=== PATIENT | female | born 1995 | race Caucasian/White ===

== ENCOUNTER 2025-06-09 07:37 | Inpatient (IN) ==
[2025-06-09] MEDS ORDERED: OXYTOCIN 30 UNITS/NSS 30 UNITS/500 ML BAG IV PRN (07:45)
[2025-06-09] MEDS ORDERED: LIDOCAINE 1% LOCAL 20 ML VIAL INFIL PRN (07:45)
--- NOTE | 2025-06-09 08:05 | History & Physical Report ---
Date of Service June 09, 2025 Assessment & Plan (1) Encounter for induction of labor: (2) Post-dates : Plan: 30 y/o at 40w 1d here for IOL. pitocin ordered epidural when desired AROM when indicated IV fluids continuous FHT - category I tracing anticipate . Admission and Anticipated Discharge Date Admission Date: June 09, 2025 History of Present Illness Chief Complaint: induction of labor Primary Care Provider: NO PCP Sanjuanita Hutchison is a 30 y/o at 40w 1d with PASTORA 06/08/25 as determined by ultrasound who presents this morning for induction of labor. uncomplicated. External FHT and external uterine monitors used; Category I tracing; moeerate FHT variability. Had regular appointments with OB. Initial OB Labs Blood Type & RH O positive Antibody Screen negative HCT/HGB 36.5/12.9 Platelets 213 Hep C IgG 13yrs+ Old non reactive Pap Test WNL Chlamydia negative Gonorrhea negative Rubella Immune RPR non reactive Urine Culture/Screen 10,000-50,000 mixed gram + lynne HBsAg non reactive HIV non reactive MCV 87.1 Ultrasound ROS: Denies fever, chills, sweats Denies SOB, dysnpea, chest pain, palpitation, chest pressure Denies breast pain Denies dysuria Denies headache or changes in vision. Allergies Allergy/AdvReac Type Severity Reaction Status Date / Time No Known Allergies Allergy Verified 06/08/25 09:07 Home Medications Medication Instructions Recorded Confirmed Type pediatric multivitamin no.76 1 mg PO DAILY 05/04/25 06/09/25 History [Tish Complete] breast pump #1 ea 05/18/25 06/08/25 Rx Patient History Medical History Varicella vaccination Surgical History S/P appendectomy Family History (Updated 05/04/25 @ 09:13 by Gill Bautista) Grandfather (Maternal) Skin cancer Denies family history of Ovarian cancer Breast cancer Colorectal cancer Social History (Updated 05/04/25 @ 08:52 by Gill Bautista) Smoking Status: Never smoker Do You Dip or Chew Tobacco: No; Hx Alcohol Use: No Hx Substance Use: No Preferred Language: Romansh Communication Ability: Effective Research [employer] Supervisor Required: No Beliefs That Will Affect Care: None marital status: Single marital status details: fob Suhail Srivastava(28) Current Living Situation: Family Current Living Situation Comment: luisa, grandmother, 3 siblings current occupational status: employed current occupation: Skills Other Information That Helps Us Care for You: Yes Feels Safe at Home: Yes Safety Concerns: Feels Safe At This Time Review of Systems as above Physical Exam Physical Exam: General: Alert, oriented. No acute distress. Cardiac: NRRR, no murmurs/rubs/gallops Respiratory: CTA BL, no increased work of breathing; symmetrical rise and fall of chest, no respiratory distress. Abdomen: soft, gravid, normal to inspection. Lower Extremities: No lower extremity edema or swelling. No deep calf pain. Bhavesh's negative bilaterally Results & Data Vital Signs (Past 12 Hours) Vital Signs Pulse BP 06/09/25 07:58 72 134/66 Supervising Physician Co-Signing Physician Notes Resident Physician Supervision Note: I interviewed and examined the patient. Discussed with Dr. Parr and agree with findings and plan as documented in the note. Any exceptions or clarifications are listed here: Postdates / elective due to FOB needing to leave town. Cervix 1cm this AM. Danielson placed as below. Pitocin also begun. monitoring was used to ensure reassuring status. The patient was verbally consented for placement of a danielson for cervical ripening, with discussion of risks, benefits and alternatives. All her questions were answered. Her legs were placed in lithotomy position. A lubricated, gloved hand was used to examine the cervix. A stylet was lubricated and inserted into a danielson catheter to give it stiffness, and the danielson catheter was then advanced along my fingers until it reached the external cervical os. The danielson was then fed forward off of the stylet, which was itself never moved beyond the external os, such that the soft catheter advanced into the uterine cavity outside of the amnion until the balloon was definitely above the internal cervical os. The balloon was then inflated using sterile water to 35cc volume. Gentle traction was used to seat the balloon downward against the internal cervical os. My hand and the stylet were removed from the vagina, and the danielson was secured to the patient's leg with a standard danielson holding sticker. There was no significant bleeding or leakage of fluid. The heart tones remained reassuring after this process, which the patient tolerated well. Documented By: Jackelin Ramos MD, FACOG
[2025-06-09] MEDS: LACTATED RINGER'S 1,000 ML IV PRN (08:32)
[2025-06-09 08:44] LABS: Hematocrit (blood only) 32.7 % (37.0-47.0); Hemoglobin 11.7 g/dL (12.0-16.0); Mean Corpuscular Hemoglobin 29.8 pg (25.0-34.0); Mean Corpuscular Volume 83.2 fL (80.0-100.0); Platelet Count 188 K/uL (130-400); RDW Standard Deviation 41.8 fL (36.4-46.3); Red Blood Count 3.93 M/uL (4.20-5.40); White Blood Count 8.97 K/ul (4.8-10.8)
[2025-06-09] MEDS: OXYTOCIN 30 UNITS/NSS 30 UNITS/500 ML BAG IV PRN (09:58)
[2025-06-09] MEDS ORDERED: BUPIVACAINE 0.25% PF 30 ML VIAL ONE (19:04)
[2025-06-09] MEDS ORDERED: NALOXONE HCL 1 MG in SODIUM CHLORIDE 0.9% 1,000 ML IV PRN (19:34)
[2025-06-09] MEDS ORDERED: LIDOCAINE 2% MPF LOCAL 5 ML VIAL EPI PRN (19:34)
[2025-06-09] MEDS ORDERED: NALBUPHINE HCL INJ 10 MG/ML AMP IV PRN (19:34)
[2025-06-09] MEDS ORDERED: ROPIVACAINE 0.5% PF 5 MG/ML 20 ML VIAL EPI PRN (19:34)
[2025-06-09] MEDS ORDERED: SODIUM CHLORIDE 0.9% PF INJ 10 ML VIAL EPI PRN (19:34)
[2025-06-09] MEDS ORDERED: NALOXONE HCL 0.4 MG/1 ML VIAL/CARP IV PRN (19:34)
[2025-06-09] MEDS ORDERED: BUPIVACAINE 0.25% PF 30 ML VIAL EPI STA (19:34)
[2025-06-09] MEDS ORDERED: PROMETHAZINE 6.25 MG/50.25 ML BAG IV PRN (19:34)
[2025-06-09] MEDS ORDERED: LIDOCAINE 2%/EPINEPHRINE 1:200,000 20 ML PF EPI STA (19:34)
[2025-06-09] MEDS ORDERED: diphenhydrAMINE 50 MG/ML VIAL IV PRN (19:34)
[2025-06-09] MEDS ORDERED: BUPIVACAINE 0.25% PF 30 ML VIAL EPI PRN (19:34)
--- NOTE | 2025-06-09 19:34 | Anesthesiology Consultation ---
Date of Service June 09, 2025 Assessment & Plan Chart Review Chart Review: Acceptable Risk for Surgery and Patient NOT seen in Pre Admission Testing Consults Requested none ASA ASA2 Proposed Anesthesia Anesthesia Type: Labor Epidural Risk / Benefits Reviewed With: PT / POA / Parent / Guardian, Accepts Plan and Informed Consent Obtained History Height/Weight Height: 5 ft 3 in Weight: 76.204 kg Allergies Allergy/AdvReac Type Severity Reaction Status Date / Time nickel Allergy Rash Verified 06/09/25 11:40 Medications Home Medications Medication Instructions Recorded Confirmed Last Taken pediatric multivitamin no.76 1 mg PO DAILY 05/04/25 06/09/25 Unknown [Flintstones Complete] breast pump #1 ea 05/18/25 06/08/25 Unknown Active Medications Generic Name Dose Route Start Last Admin Trade Name Freq PRN Reason Stop Dose Admin Lactated Ringer's 1,000 mls @ 125 mls/hr 06/09/25 07:45 06/09/25 19:11 Lr IV 06/11/25 07:44 999 mls/hr .Q8H PRN Infusion L&D Protocol Protocol Oxytocin 30 units in 500 mls @ 14 mls/hr 06/09/25 09:49 06/09/25 18:50 Pitocin 30 Units/Nss IV 06/11/25 09:48 0.84 units/hr .Q24H PRN 14 mls/hr Labor Induction/Augmentation Titration Protocol 0.84 UNITS/HR Past Medical History Medical History Varicella vaccination Exercise / Class Metabolic Activity II 4-5 Yardwork/Stairs/Walk up hill Past Family History Family History (Updated 05/04/25 @ 09:13 by Gill Bautista) Grandfather (Maternal) Skin cancer Denies family history of Ovarian cancer Breast cancer Colorectal cancer Past Surgical History Surgical History S/P appendectomy Past Anesthesia History No Hx of Anesthesia Complications and No Family Hx of Anesthesia Complications History of PONV No Hx of PONV and No Hx of Motion Sickness Social History Smoking Status: Never smoker Do You Dip or Chew Tobacco: No Hx Alcohol Use: No Hx Substance Use: No substance use type: does not use Physical Exam Vital Signs Last Vital Signs Temp 37.1 C 06/09/25 19:11 Pulse 52 L 06/09/25 19:28 Resp 18 06/09/25 19:11 BP 125/74 06/09/25 19:11 Pulse Ox 99 06/09/25 19:28 ENMT Mouth: no dentition abnormality Thyromental Distance: > or= 3.5 Finger Breadths Mallampati Class: II Neck normal visual inspection Respiratory normal respiratory effort Auscultation: lungs clear to auscultation bilaterally Cardiovascular Rate/Rhythm: regular rate and regular rhythm Psychiatric Orientation: alert Testing Laboratory Results 06/09/25 08:25
[2025-06-09] MEDS: LIDOCAINE 2%/EPINEPHRINE 1:200,000 20 ML PF ONE (19:50)
[2025-06-09] MEDS: SODIUM CHLORIDE 0.9% PF INJ 10 ML VIAL EPI STA (19:50)
[2025-06-09] MEDS: fentANYL 2 MCG/ML BUPIVacaine 0.125%-NSS 100ML BAG ONE (19:51)
[2025-06-09] MEDS: ONDANSETRON INJ 2 MG/ML 2 ML VIAL IV PRN (22:17)
[2025-06-10] MEDS: fentANYL 2 MCG/ML BUPIVacaine 0.125%-NSS 100ML BAG EPI PRN (05:17)
--- NOTE | 2025-06-10 06:17 | Labor Progress Brief Note ---
Date of Service June 10, 2025 Subjective Comfortable with epidural. Intermittent pelvic pressure Assessment & Plan (1) Encounter for induction of labor: Plan: IUPC placed and initial ctx inadequate. Discussed options of pit break to desaturate vs continue up from here to new ceiling of 30. Decision to increase and if not seeing improved RVU after 2 increases will reconsider a break. Admission and Anticipated Discharge Date Admission Date: June 09, 2025 Physical Exam Genitourinary: FHT Cat 1 Pit @ 20 as of 0200 Ctx Q2m Cervix per RN was 6cm at last check with high station; my exam now 6/80/0 with molding. LOF now thick meconium which is new IUPC placed after d/w patient, FOB/mom and RN Results & Data Vital Signs (Past 12 Hours) Vital Signs Temp Pulse Resp BP Pulse Ox 06/10/25 06:08 61 97 06/10/25 06:03 66 98 06/10/25 05:58 95 06/10/25 05:58 83 06/10/25 05:58 77 94 06/10/25 05:56 67 125/77 06/10/25 05:53 80 95 06/10/25 05:48 54 L 97 06/10/25 05:43 53 L 98 06/10/25 05:42 57 L 105/59 L 06/10/25 05:38 57 L 97 06/10/25 05:33 52 L 98 06/10/25 05:28 55 L 97 06/10/25 05:25 54 L 105/52 L 06/10/25 05:23 63 98 06/10/25 05:18 58 L 98 06/10/25 05:13 88 98 06/10/25 05:11 64 125/74 06/10/25 05:08 69 99 06/10/25 05:05 99.3 F 06/10/25 05:03 57 L 97 06/10/25 04:58 56 L 97 06/10/25 04:55 55 L 109/57 L 06/10/25 04:53 55 L 97 06/10/25 04:48 55 L 97 06/10/25 04:43 59 L 97 06/10/25 04:40 54 L 103/57 L 06/10/25 04:38 55 L 97 06/10/25 04:33 56 L 97 06/10/25 04:28 56 L 98 06/10/25 04:26 52 L 104/55 L 06/10/25 04:23 55 L 98 06/10/25 04:18 55 L 97 06/10/25 04:13 57 L 97 06/10/25 04:11 55 L 106/59 L 06/10/25 04:08 54 L 97 06/10/25 04:03 58 L 96 06/10/25 03:58 55 L 97 06/10/25 03:56 55 L 107/58 L 06/10/25 03:53 56 L 97 06/10/25 03:48 55 L 97 06/10/25 03:43 54 L 98 06/10/25 03:41 58 L 103/58 L 06/10/25 03:38 64 99 06/10/25 03:33 56 L 98 06/10/25 03:28 58 L 98 06/10/25 03:25 61 123/58 L 06/10/25 03:23 59 L 97 06/10/25 03:18 56 L 97 06/10/25 03:13 57 L 97 06/10/25 03:10 58 L 110/58 L 06/10/25 03:08 54 L 97 06/10/25 03:03 59 L 97 06/10/25 03:00 99.1 F 06/10/25 02:58 55 L 97 06/10/25 02:57 52 L 97/54 L 06/10/25 02:53 52 L 97 06/10/25 02:48 53 L 97 06/10/25 02:43 61 97 06/10/25 02:42 53 L 106/57 L 06/10/25 02:38 60 97 06/10/25 02:33 53 L 97 06/10/25 02:28 57 L 97 06/10/25 02:26 57 L 127/61 06/10/25 02:23 55 L 99 06/10/25 02:18 56 L 98 06/10/25 02:13 64 99 06/10/25 02:10 56 L 113/58 L 06/10/25 02:08 55 L 98 06/10/25 02:03 54 L 99 06/10/25 01:58 56 L 99 06/10/25 01:57 56 L 117/57 L 06/10/25 01:53 75 98 06/10/25 01:48 74 98 06/10/25 01:43 67 99 06/10/25 01:41 74 134/85 06/10/25 01:38 93 H 100 06/10/25 01:33 65 100 06/10/25 01:28 53 L 99 06/10/25 01:26 64 126/61 06/10/25 01:23 67 99 06/10/25 01:18 57 L 99 06/10/25 01:13 57 L 98 06/10/25 01:10 60 123/75 06/10/25 01:08 56 L 98 06/10/25 01:03 60 99 06/10/25 01:00 18 06/10/25 01:00 99.0 F 18 06/10/25 00:58 72 100 06/10/25 00:56 55 L 108/66 06/10/25 00:53 54 L 98 06/10/25 00:48 52 L 97 06/10/25 00:43 53 L 98 06/10/25 00:40 52 L 113/64 06/10/25 00:38 51 L 98 06/10/25 00:33 50 L 98 06/10/25 00:28 54 L 98 06/10/25 00:25 53 L 116/64 06/10/25 00:23 51 L 98 06/10/25 00:18 52 L 98 06/10/25 00:13 56 L 97 06/10/25 00:11 55 L 104/58 L 06/10/25 00:08 53 L 98 06/10/25 00:03 54 L 97 06/09/25 23:58 52 L 98 06/09/25 23:56 54 L 112/58 L 06/09/25 23:53 53 L 98 06/09/25 23:48 53 L 98 06/09/25 23:43 55 L 99 06/09/25 23:41 54 L 107/56 L 06/09/25 23:38 56 L 98 06/09/25 23:33 62 98 06/09/25 23:28 52 L 97 06/09/25 23:26 55 L 105/55 L 06/09/25 23:23 50 L 97 06/09/25 23:18 51 L 96 06/09/25 23:13 51 L 97 06/09/25 23:11 50 L 93/55 L 06/09/25 23:08 51 L 97 06/09/25 23:03 52 L 98 06/09/25 22:58 54 L 98 06/09/25 22:56 54 L 100/55 L 06/09/25 22:55 98.4 F 06/09/25 22:53 61 97 06/09/25 22:48 54 L 98 06/09/25 22:43 56 L 98 06/09/25 22:41 59 L 102/55 L 06/09/25 22:38 56 L 98 06/09/25 22:33 61 99 06/09/25 22:28 78 98 06/09/25 22:23 63 99 06/09/25 22:18 95 H 99 06/09/25 22:13 125 H 99 06/09/25 22:11 120 H 157/111 H 91 06/09/25 22:08 58 L 100 06/09/25 22:03 67 100 06/09/25 21:58 51 L 99 06/09/25 21:55 51 L 123/75 06/09/25 21:53 66 99 06/09/25 21:48 68 99 06/09/25 21:43 56 L 99 06/09/25 21:40 57 L 119/77 06/09/25 21:38 56 L 99 06/09/25 21:33 80 97 06/09/25 21:29 66 91 06/09/25 21:28 53 L 99 06/09/25 21:26 57 L 106/67 06/09/25 21:23 59 L 100 06/09/25 21:18 60 100 06/09/25 21:13 67 99 06/09/25 21:12 60 103/64 06/09/25 21:10 60 92 06/09/25 21:08 51 L 99 06/09/25 21:03 61 100 06/09/25 21:00 98.6 F 06/09/25 20:58 52 L 99 06/09/25 20:55 50 L 104/55 L 06/09/25 20:53 48 L 98 06/09/25 20:48 52 L 99 06/09/25 20:43 49 L 99 06/09/25 20:41 51 L 102/56 L 12/04/25 20:38 54 L 99 06/09/25 20:33 52 L 99 06/09/25 20:28 53 L 99 06/09/25 20:27 51 L 100/52 L 06/09/25 20:23 57 L 100 06/09/25 20:18 60 99 06/09/25 20:13 65 99 06/09/25 20:09 86 90 06/09/25 20:08 90 98 06/09/25 20:03 99 06/09/25 20:03 92 H 06/09/25 20:03 62 111/68 06/09/25 19:58 66 99 06/09/25 19:56 92 H 115/72 06/09/25 19:54 64 121/61 06/09/25 19:53 65 99 06/09/25 19:50 64 124/74 06/09/25 19:48 65 100 06/09/25 19:46 70 137/77 06/09/25 19:43 67 99 06/09/25 19:38 83 95 06/09/25 19:33 53 L 99 06/09/25 19:28 52 L 99 06/09/25 19:23 52 L 100 06/09/25 19:11 98.8 F 59 L 18 125/74 06/09/25 19:00 20 06/09/25 19:00 20 06/09/25 18:30 18 06/09/25 18:30 18 06/09/25 18:16 60 140/85 06/09/25 18:15 20 06/09/25 18:15 98.6 F 20 Coding Level of Care Code None Diagnoses Encounter for induction of labor Z34.90
--- NOTE | 2025-06-10 09:24 | Labor Progress Brief Note ---
Date of Service June 10, 2025 Subjective Reason For Note: Routine Evaluation Doing fine but feels tired. Review of Systems All systems reviewed & are unremarkable except as noted in HPI & below Assessment & Plan (1) Encounter for induction of labor: Plan Pt is a 30yo admitted for induction of labor. Pitocin recently stopped due to period of late decelerations; FHT now recovered and reassuring RN check /0 - c/w previous exam at 6AM Reviewed options with patient -- can continue induction if reassurance continues and if patient desires this with resuming pitocin, position changes Discussed if additional intolerance or continues without making cervical change,would recommend proceeding with section Also offered primary section at this time as a reasonable option given the circumstances Pt will consider options with family Admission and Anticipated Discharge Date Admission Date: June 09, 2025 Physical Exam Constitutional: WD/WN, vitals as above healthy appearing Respiratory: normal respiratory effort Psychiatric: Orientation: alert and oriented x 3 Genitourinary: OB Exam Monitor Tracing: + external FHT monitor used, + intra- uterine pressure catheter used (cxn q5 min) and + category I RN check /0 Results & Data Vital Signs (Past 12 Hours) Vital Signs Temp Pulse Resp BP Pulse Ox 06/10/25 09:18 88 97 06/10/25 09:13 62 98 06/10/25 09:08 91 H 99 06/10/25 09:07 90 86 L 06/10/25 09:03 61 98 06/10/25 09:00 16 06/10/25 09:00 37.5 C 16 06/10/25 08:58 62 98 06/10/25 08:56 56 L 107/56 L 06/10/25 08:53 61 98 06/10/25 08:48 59 L 99 06/10/25 08:43 65 99 06/10/25 08:42 60 107/57 L 06/10/25 08:38 66 99 06/10/25 08:33 67 99 06/10/25 08:30 18 06/10/25 08:30 18 06/10/25 08:28 99 06/10/25 08:28 74 06/10/25 08:28 97 H 89 L 06/10/25 08:27 75 107/56 L 06/10/25 08:26 55 L 104/52 L 06/10/25 08:23 59 L 98 06/10/25 08:18 63 98 06/10/25 08:13 58 L 99 06/10/25 08:11 61 104/58 L 06/10/25 08:08 76 99 06/10/25 08:03 85 100 06/10/25 07:58 86 99 06/10/25 07:55 71 110/69 06/10/25 07:53 74 98 06/10/25 07:48 80 98 06/10/25 07:43 69 98 06/10/25 07:42 77 93 06/10/25 07:41 62 112/57 L 06/10/25 07:38 61 99 06/10/25 07:33 84 98 06/10/25 07:30 18 06/10/25 07:30 18 06/10/25 07:28 62 99 06/10/25 07:25 63 116/70 06/10/25 07:23 62 98 06/10/25 07:18 62 100 06/10/25 07:13 57 L 99 06/10/25 07:11 56 L 129/73 06/10/25 07:08 60 99 06/10/25 07:03 65 98 06/10/25 07:00 18 06/10/25 07:00 37.5 C 18 06/10/25 06:58 64 132/80 97 06/10/25 06:55 52 L 122/73 06/10/25 06:53 54 L 98 06/10/25 06:48 53 L 98 06/10/25 06:43 57 L 99 06/10/25 06:42 54 L 114/69 06/10/25 06:40 55 L 122/72 06/10/25 06:38 56 L 98 06/10/25 06:33 55 L 98 06/10/25 06:28 58 L 99 06/10/25 06:25 56 L 137/71 06/10/25 06:23 57 L 99 06/10/25 06:18 63 98 06/10/25 06:13 62 98 06/10/25 06:11 75 129/85 06/10/25 06:08 61 97 06/10/25 06:03 66 98 06/10/25 05:58 95 06/10/25 05:58 83 06/10/25 05:58 77 94 06/10/25 05:56 67 125/77 06/10/25 05:53 80 95 06/10/25 05:48 54 L 97 06/10/25 05:43 53 L 98 06/10/25 05:42 57 L 105/59 L 06/10/25 05:38 57 L 97 06/10/25 05:33 52 L 98 06/10/25 05:28 55 L 97 06/10/25 05:25 54 L 105/52 L 06/10/25 05:23 63 98 06/10/25 05:18 58 L 98 06/10/25 05:13 88 98 06/10/25 05:11 64 125/74 06/10/25 05:08 69 99 06/10/25 05:05 37.4 C 06/10/25 05:03 57 L 97 06/10/25 04:58 56 L 97 06/10/25 04:55 55 L 109/57 L 06/10/25 04:53 55 L 97 06/10/25 04:48 55 L 97 06/10/25 04:43 59 L 97 06/10/25 04:40 54 L 103/57 L 06/10/25 04:38 55 L 97 06/10/25 04:33 56 L 97 06/10/25 04:28 56 L 98 06/10/25 04:26 52 L 104/55 L 06/10/25 04:23 55 L 98 06/10/25 04:18 55 L 97 06/10/25 04:13 57 L 97 06/10/25 04:11 55 L 106/59 L 06/10/25 04:08 54 L 97 06/10/25 04:03 58 L 96 06/10/25 03:58 55 L 97 06/10/25 03:56 55 L 107/58 L 06/10/25 03:53 56 L 97 06/10/25 03:48 55 L 97 06/10/25 03:43 54 L 98 06/10/25 03:41 58 L 103/58 L 06/10/25 03:38 64 99 06/10/25 03:33 56 L 98 06/10/25 03:28 58 L 98 06/10/25 03:25 61 123/58 L 06/10/25 03:23 59 L 97 06/10/25 03:18 56 L 97 06/10/25 03:13 57 L 97 06/10/25 03:10 58 L 110/58 L 06/10/25 03:08 54 L 97 06/10/25 03:03 59 L 97 06/10/25 03:00 37.3 C 06/10/25 02:58 55 L 97 06/10/25 02:57 52 L 97/54 L 06/10/25 02:53 52 L 97 06/10/25 02:48 53 L 97 06/10/25 02:43 61 97 06/10/25 02:42 53 L 106/57 L 06/10/25 02:38 60 97 06/10/25 02:33 53 L 97 06/10/25 02:28 57 L 97 06/10/25 02:26 57 L 127/61 06/10/25 02:23 55 L 99 06/10/25 02:18 56 L 98 06/10/25 02:13 64 99 06/10/25 02:10 56 L 113/58 L 06/10/25 02:08 55 L 98 06/10/25 02:03 54 L 99 06/10/25 01:58 56 L 99 06/10/25 01:57 56 L 117/57 L 06/10/25 01:53 75 98 06/10/25 01:48 74 98 06/10/25 01:43 67 99 06/10/25 01:41 74 134/85 06/10/25 01:38 93 H 100 06/10/25 01:33 65 100 06/10/25 01:28 53 L 99 06/10/25 01:26 64 126/61 06/10/25 01:23 67 99 06/10/25 01:18 57 L 99 06/10/25 01:13 57 L 98 06/10/25 01:10 60 123/75 06/10/25 01:08 56 L 98 06/10/25 01:03 60 99 06/10/25 01:00 18 06/10/25 01:00 37.2 C 18 06/10/25 00:58 72 100 06/10/25 00:56 55 L 108/66 06/10/25 00:53 54 L 98 06/10/25 00:48 52 L 97 06/10/25 00:43 53 L 98 06/10/25 00:40 52 L 113/64 06/10/25 00:38 51 L 98 06/10/25 00:33 50 L 98 06/10/25 00:28 54 L 98 06/10/25 00:25 53 L 116/64 06/10/25 00:23 51 L 98 06/10/25 00:18 52 L 98 06/10/25 00:13 56 L 97 06/10/25 00:11 55 L 104/58 L 06/10/25 00:08 53 L 98 06/10/25 00:03 54 L 97 06/09/25 23:58 52 L 98 06/09/25 23:56 54 L 112/58 L 06/09/25 23:53 53 L 98 06/09/25 23:48 53 L 98 06/09/25 23:43 55 L 99 06/09/25 23:41 54 L 107/56 L 06/09/25 23:38 56 L 98 06/09/25 23:33 62 98 06/09/25 23:28 52 L 97 06/09/25 23:26 55 L 105/55 L 06/09/25 23:23 50 L 97 06/09/25 23:18 51 L 96 06/09/25 23:13 51 L 97 06/09/25 23:11 50 L 93/55 L 06/09/25 23:08 51 L 97 06/09/25 23:03 52 L 98 06/09/25 22:58 54 L 98 06/09/25 22:56 54 L 100/55 L 06/09/25 22:55 36.9 C 06/09/25 22:53 61 97 06/09/25 22:48 54 L 98 06/09/25 22:43 56 L 98 06/09/25 22:41 59 L 102/55 L 06/09/25 22:38 56 L 98 06/09/25 22:33 61 99 06/09/25 22:28 78 98 06/09/25 22:23 63 99 06/09/25 22:18 95 H 99 06/09/25 22:13 125 H 99 06/09/25 22:11 120 H 157/111 H 91 06/09/25 22:08 58 L 100 06/09/25 22:03 67 100 06/09/25 21:58 51 L 99 06/09/25 21:55 51 L 123/75 06/09/25 21:53 66 99 06/09/25 21:48 68 99 06/09/25 21:43 56 L 99 06/09/25 21:40 57 L 119/77 06/09/25 21:38 56 L 99 06/09/25 21:33 80 97 06/09/25 21:29 66 91 06/09/25 21:28 53 L 99 06/09/25 21:26 57 L 106/67 06/09/25 21:23 59 L 100 Coding Level of Care Code None Diagnoses Encounter for induction of labor Z34.90
--- NOTE | 2025-06-10 11:05 | Labor Progress Brief Note ---
Date of Service June 10, 2025 Subjective Doing fine, no interval changes Assessment & Plan (1) Encounter for induction of labor: Plan Pt is a 30yo admitted for induction of labor. My first check /0 - soft stretchy, likely c/w previous exams Reviewed options with patient --not in adequate labor pattern currently, pitocin recently restarted and at 4 Pt wants to reattempt getting into adequate labor pattern with pitocin with recheck to follow; if no changes with this or intolerance recurs she is agreeable to a primary section Continue pitocin titration as tolerated and position changes Admission and Anticipated Discharge Date Admission Date: June 09, 2025 Physical Exam Constitutional: WD/WN, vitals as above healthy appearing Respiratory: normal respiratory effort Psychiatric: Orientation: alert and oriented x 3 Genitourinary: Manual OB Exam: + cervical dilation 6 cm, + cervical effacement 80% and + station 0 OB Exam Monitor Tracing: + external FHT monitor used, + intra-uterine pressure catheter used (cxn q5 min) and + category I Results & Data Vital Signs (Past 12 Hours) Vital Signs Temp Pulse Resp BP Pulse Ox 06/10/25 11:00 91 H 131/61 06/10/25 10:59 72 98 06/10/25 10:53 95 H 98 06/10/25 10:48 87 99 06/10/25 10:45 96 H 93 06/10/25 10:43 62 97 06/10/25 10:40 58 L 129/73 06/10/25 10:38 57 L 98 06/10/25 10:33 53 L 98 06/10/25 10:30 16 06/10/25 10:30 16 06/10/25 10:28 53 L 99 06/10/25 10:25 54 L 123/70 06/10/25 10:23 54 L 98 06/10/25 10:18 53 L 99 06/10/25 10:13 56 L 99 06/10/25 10:10 59 L 121/66 06/10/25 10:08 58 L 99 06/10/25 10:03 54 L 99 06/10/25 09:58 52 L 99 06/10/25 09:56 51 L 123/64 06/10/25 09:53 58 L 100 06/10/25 09:48 58 L 99 06/10/25 09:44 57 L 120/68 06/10/25 09:43 62 100 06/10/25 09:38 74 92 06/10/25 09:33 65 99 06/10/25 09:30 18 06/10/25 09:30 18 06/10/25 09:28 66 98 06/10/25 09:26 74 123/58 L 06/10/25 09:23 88 99 06/10/25 09:18 88 97 06/10/25 09:13 62 98 06/10/25 09:08 91 H 99 06/10/25 09:07 90 86 L 06/10/25 09:03 61 98 06/10/25 09:00 16 06/10/25 09:00 37.5 C 16 06/10/25 08:58 62 98 06/10/25 08:56 56 L 107/56 L 06/10/25 08:53 61 98 06/10/25 08:48 59 L 99 06/10/25 08:43 65 99 06/10/25 08:42 60 107/57 L 06/10/25 08:38 66 99 06/10/25 08:33 67 99 06/10/25 08:30 18 06/10/25 08:30 18 06/10/25 08:28 99 06/10/25 08:28 74 06/10/25 08:28 97 H 89 L 06/10/25 08:27 75 107/56 L 06/10/25 08:26 55 L 104/52 L 06/10/25 08:23 59 L 98 06/10/25 08:18 63 98 06/10/25 08:13 58 L 99 06/10/25 08:11 61 104/58 L 06/10/25 08:08 76 99 06/10/25 08:03 85 100 06/10/25 07:58 86 99 06/10/25 07:55 71 110/69 06/10/25 07:53 74 98 06/10/25 07:48 80 98 06/10/25 07:43 69 98 06/10/25 07:42 77 93 06/10/25 07:41 62 112/57 L 06/10/25 07:38 61 99 06/10/25 07:33 84 98 06/10/25 07:30 18 06/10/25 07:30 18 06/10/25 07:28 62 99 06/10/25 07:25 63 116/70 06/10/25 07:23 62 98 06/10/25 07:18 62 100 06/10/25 07:13 57 L 99 06/10/25 07:11 56 L 129/73 06/10/25 07:08 60 99 06/10/25 07:03 65 98 06/10/25 07:00 18 06/10/25 07:00 37.5 C 18 06/10/25 06:58 64 132/80 97 06/10/25 06:55 52 L 122/73 06/10/25 06:53 54 L 98 06/10/25 06:48 53 L 98 06/10/25 06:43 57 L 99 06/10/25 06:42 54 L 114/69 06/10/25 06:40 55 L 122/72 06/10/25 06:38 56 L 98 06/10/25 06:33 55 L 98 06/10/25 06:28 58 L 99 06/10/25 06:25 56 L 137/71 06/10/25 06:23 57 L 99 06/10/25 06:18 63 98 06/10/25 06:13 62 98 06/10/25 06:11 75 129/85 06/10/25 06:08 61 97 06/10/25 06:03 66 98 06/10/25 05:58 95 06/10/25 05:58 83 06/10/25 05:58 77 94 06/10/25 05:56 67 125/77 06/10/25 05:53 80 95 06/10/25 05:48 54 L 97 06/10/25 05:43 53 L 98 06/10/25 05:42 57 L 105/59 L 06/10/25 05:38 57 L 97 06/10/25 05:33 52 L 98 06/10/25 05:28 55 L 97 06/10/25 05:25 54 L 105/52 L 06/10/25 05:23 63 98 06/10/25 05:18 58 L 98 06/10/25 05:13 88 98 06/10/25 05:11 64 125/74 06/10/25 05:08 69 99 06/10/25 05:05 37.4 C 06/10/25 05:03 57 L 97 06/10/25 04:58 56 L 97 06/10/25 04:55 55 L 109/57 L 06/10/25 04:53 55 L 97 06/10/25 04:48 55 L 97 06/10/25 04:43 59 L 97 06/10/25 04:40 54 L 103/57 L 06/10/25 04:38 55 L 97 06/10/25 04:33 56 L 97 06/10/25 04:28 56 L 98 06/10/25 04:26 52 L 104/55 L 06/10/25 04:23 55 L 98 06/10/25 04:18 55 L 97 06/10/25 04:13 57 L 97 06/10/25 04:11 55 L 106/59 L 06/10/25 04:08 54 L 97 06/10/25 04:03 58 L 96 06/10/25 03:58 55 L 97 06/10/25 03:56 55 L 107/58 L 06/10/25 03:53 56 L 97 06/10/25 03:48 55 L 97 06/10/25 03:43 54 L 98 06/10/25 03:41 58 L 103/58 L 06/10/25 03:38 64 99 06/10/25 03:33 56 L 98 06/10/25 03:28 58 L 98 06/10/25 03:25 61 123/58 L 06/10/25 03:23 59 L 97 06/10/25 03:18 56 L 97 06/10/25 03:13 57 L 97 06/10/25 03:10 58 L 110/58 L 06/10/25 03:08 54 L 97 06/10/25 03:03 59 L 97 06/10/25 03:00 37.3 C 06/10/25 02:58 55 L 97 06/10/25 02:57 52 L 97/54 L 06/10/25 02:53 52 L 97 06/10/25 02:48 53 L 97 06/10/25 02:43 61 97 06/10/25 02:42 53 L 106/57 L 06/10/25 02:38 60 97 06/10/25 02:33 53 L 97 06/10/25 02:28 57 L 97 06/10/25 02:26 57 L 127/61 06/10/25 02:23 55 L 99 06/10/25 02:18 56 L 98 06/10/25 02:13 64 99 06/10/25 02:10 56 L 113/58 L 06/10/25 02:08 55 L 98 06/10/25 02:03 54 L 99 06/10/25 01:58 56 L 99 06/10/25 01:57 56 L 117/57 L 06/10/25 01:53 75 98 06/10/25 01:48 74 98 06/10/25 01:43 67 99 06/10/25 01:41 74 134/85 06/10/25 01:38 93 H 100 06/10/25 01:33 65 100 06/10/25 01:28 53 L 99 06/10/25 01:26 64 126/61 06/10/25 01:23 67 99 06/10/25 01:18 57 L 99 06/10/25 01:13 57 L 98 06/10/25 01:10 60 123/75 06/10/25 01:08 56 L 98 06/10/25 01:03 60 99 06/10/25 01:00 18 06/10/25 01:00 37.2 C 18 06/10/25 00:58 72 100 06/10/25 00:56 55 L 108/66 06/10/25 00:53 54 L 98 06/10/25 00:48 52 L 97 06/10/25 00:43 53 L 98 06/10/25 00:40 52 L 113/64 06/10/25 00:38 51 L 98 06/10/25 00:33 50 L 98 06/10/25 00:28 54 L 98 06/10/25 00:25 53 L 116/64 06/10/25 00:23 51 L 98 06/10/25 00:18 52 L 98 06/10/25 00:13 56 L 97 06/10/25 00:11 55 L 104/58 L 06/10/25 00:08 53 L 98 06/10/25 00:03 54 L 97 06/09/25 23:58 52 L 98 06/09/25 23:56 54 L 112/58 L 06/09/25 23:53 53 L 98 06/09/25 23:48 53 L 98 06/09/25 23:43 55 L 99 06/09/25 23:41 54 L 107/56 L 06/09/25 23:38 56 L 98 06/09/25 23:33 62 98 06/09/25 23:28 52 L 97 06/09/25 23:26 55 L 105/55 L 06/09/25 23:23 50 L 97 06/09/25 23:18 51 L 96 06/09/25 23:13 51 L 97 06/09/25 23:11 50 L 93/55 L 06/09/25 23:08 51 L 97 06/09/25 23:03 52 L 98 Coding Level of Care Code None Diagnoses Encounter for induction of labor Z34.90
--- NOTE | 2025-06-10 15:05 | Labor Progress Brief Note ---
Date of Service June 10, 2025 Subjective Doing fine, no interval changes. Malone some intermittent pressure. Review of Systems All systems reviewed & are unremarkable except as noted in HPI & below Assessment & Plan (1) Encounter for induction of labor: Plan Pt is a 30yo admitted for induction of labor. Cervical check remains unchanged at 6/80/0 Recommend primary section at this time due to arrest of dilation Discontinue pitocin, section orders placed Will move to OR when able Admission and Anticipated Discharge Date Admission Date: June 09, 2025 Physical Exam Constitutional: WD/WN, vitals as above healthy appearing Respiratory: normal respiratory effort Psychiatric: Orientation: alert and oriented x 3 Genitourinary: Manual OB Exam: + cervical dilation 6 cm, + cervical effacement 80% and + station 0 OB Exam Monitor Tracing: + external FHT monitor used, + intra-uterine pressure catheter used (cxn q5 min) and + category I Results & Data Vital Signs (Past 12 Hours) Vital Signs Temp Pulse Resp BP Pulse Ox 06/10/25 14:59 83 98 06/10/25 14:55 65 120/65 06/10/25 14:54 69 99 06/10/25 14:49 65 100 06/10/25 14:44 79 100 06/10/25 14:40 69 130/73 06/10/25 14:39 82 97 06/10/25 14:34 77 99 06/10/25 14:30 18 06/10/25 14:30 18 06/10/25 14:29 70 99 06/10/25 14:26 61 117/58 L 06/10/25 14:24 71 97 06/10/25 14:19 68 100 06/10/25 14:14 67 100 06/10/25 14:12 67 121/62 06/10/25 14:09 75 100 06/10/25 14:04 63 100 06/10/25 14:00 18 06/10/25 14:00 18 06/10/25 13:59 58 L 100 06/10/25 13:55 61 121/54 L 06/10/25 13:54 80 100 06/10/25 13:49 71 99 06/10/25 13:44 67 99 06/10/25 13:40 66 118/68 06/10/25 13:39 62 99 06/10/25 13:34 74 99 12/05/25 13:30 18 06/10/25 13:30 18 06/10/25 13:29 72 99 06/10/25 13:25 75 113/62 06/10/25 13:24 72 99 06/10/25 13:19 74 99 06/10/25 13:14 73 100 06/10/25 13:10 67 113/66 06/10/25 13:09 65 99 06/10/25 13:04 86 99 06/10/25 13:03 79 93 06/10/25 13:00 18 06/10/25 13:00 37.4 C 18 06/10/25 12:59 75 99 06/10/25 12:55 73 114/67 06/10/25 12:54 64 99 06/10/25 12:49 83 97 06/10/25 12:44 65 99 06/10/25 12:42 64 115/56 L 06/10/25 12:39 88 97 06/10/25 12:34 73 100 06/10/25 12:30 18 06/10/25 12:30 18 06/10/25 12:29 68 100 06/10/25 12:26 67 118/65 06/10/25 12:24 75 100 06/10/25 12:19 78 100 06/10/25 12:14 68 99 06/10/25 12:11 75 134/63 06/10/25 12:09 74 99 06/10/25 12:04 67 98 06/10/25 11:59 74 100 06/10/25 11:55 76 117/64 06/10/25 11:54 69 99 06/10/25 11:49 70 99 06/10/25 11:46 93 H 91 06/10/25 11:44 66 100 06/10/25 11:42 57 L 123/70 06/10/25 11:39 69 100 06/10/25 11:34 57 L 99 06/10/25 11:30 18 06/10/25 11:30 18 06/10/25 11:29 66 99 06/10/25 11:25 58 L 116/57 L 06/10/25 11:24 55 L 99 06/10/25 11:19 54 L 99 06/10/25 11:14 61 98 06/10/25 11:10 63 114/61 06/10/25 11:09 62 100 06/10/25 11:04 60 99 06/10/25 11:00 37.0 C 91 H 18 131/61 06/10/25 10:59 72 98 06/10/25 10:53 95 H 98 06/10/25 10:48 87 99 06/10/25 10:45 96 H 93 06/10/25 10:43 62 97 06/10/25 10:40 58 L 129/73 06/10/25 10:38 57 L 98 06/10/25 10:33 53 L 98 06/10/25 10:30 16 06/10/25 10:30 16 06/10/25 10:28 53 L 99 06/10/25 10:25 54 L 123/70 06/10/25 10:23 54 L 98 06/10/25 10:18 53 L 99 06/10/25 10:13 56 L 99 06/10/25 10:10 59 L 121/66 06/10/25 10:08 58 L 99 06/10/25 10:03 54 L 99 06/10/25 09:58 52 L 99 06/10/25 09:56 51 L 123/64 06/10/25 09:53 58 L 100 06/10/25 09:48 58 L 99 06/10/25 09:44 57 L 120/68 06/10/25 09:43 62 100 06/10/25 09:38 74 92 06/10/25 09:33 65 99 06/10/25 09:30 18 06/10/25 09:30 18 06/10/25 09:28 66 98 06/10/25 09:26 74 123/58 L 06/10/25 09:23 88 99 06/10/25 09:18 88 97 06/10/25 09:13 62 98 06/10/25 09:08 91 H 99 06/10/25 09:07 90 86 L 06/10/25 09:03 61 98 06/10/25 09:00 16 06/10/25 09:00 37.5 C 16 06/10/25 08:58 62 98 06/10/25 08:56 56 L 107/56 L 06/10/25 08:53 61 98 06/10/25 08:48 59 L 99 06/10/25 08:43 65 99 06/10/25 08:42 60 107/57 L 06/10/25 08:38 66 99 06/10/25 08:33 67 99 06/10/25 08:30 18 06/10/25 08:30 18 06/10/25 08:28 99 06/10/25 08:28 74 06/10/25 08:28 97 H 89 L 06/10/25 08:27 75 107/56 L 06/10/25 08:26 55 L 104/52 L 06/10/25 08:23 59 L 98 06/10/25 08:18 63 98 06/10/25 08:13 58 L 99 06/10/25 08:11 61 104/58 L 06/10/25 08:08 76 99 06/10/25 08:03 85 100 06/10/25 07:58 86 99 06/10/25 07:55 71 110/69 06/10/25 07:53 74 98 06/10/25 07:48 80 98 06/10/25 07:43 69 98 06/10/25 07:42 77 93 06/10/25 07:41 62 112/57 L 06/10/25 07:38 61 99 06/10/25 07:33 84 98 06/10/25 07:30 18 06/10/25 07:30 18 06/10/25 07:28 62 99 06/10/25 07:25 63 116/70 06/10/25 07:23 62 98 06/10/25 07:18 62 100 06/10/25 07:13 57 L 99 06/10/25 07:11 56 L 129/73 06/10/25 07:08 60 99 06/10/25 07:03 65 98 06/10/25 07:00 18 06/10/25 07:00 37.5 C 18 06/10/25 06:58 64 132/80 97 06/10/25 06:55 52 L 122/73 06/10/25 06:53 54 L 98 06/10/25 06:48 53 L 98 06/10/25 06:43 57 L 99 06/10/25 06:42 54 L 114/69 06/10/25 06:40 55 L 122/72 06/10/25 06:38 56 L 98 06/10/25 06:33 55 L 98 06/10/25 06:28 58 L 99 06/10/25 06:25 56 L 137/71 06/10/25 06:23 57 L 99 06/10/25 06:18 63 98 06/10/25 06:13 62 98 06/10/25 06:11 75 129/85 06/10/25 06:08 61 97 06/10/25 06:03 66 98 06/10/25 05:58 95 06/10/25 05:58 83 06/10/25 05:58 77 94 06/10/25 05:56 67 125/77 06/10/25 05:53 80 95 06/10/25 05:48 54 L 97 06/10/25 05:43 53 L 98 06/10/25 05:42 57 L 105/59 L 06/10/25 05:38 57 L 97 06/10/25 05:33 52 L 98 06/10/25 05:28 55 L 97 06/10/25 05:25 54 L 105/52 L 06/10/25 05:23 63 98 06/10/25 05:18 58 L 98 06/10/25 05:13 88 98 06/10/25 05:11 64 125/74 06/10/25 05:08 69 99 06/10/25 05:05 37.4 C 06/10/25 05:03 57 L 97 06/10/25 04:58 56 L 97 06/10/25 04:55 55 L 109/57 L 06/10/25 04:53 55 L 97 06/10/25 04:48 55 L 97 06/10/25 04:43 59 L 97 06/10/25 04:40 54 L 103/57 L 06/10/25 04:38 55 L 97 06/10/25 04:33 56 L 97 06/10/25 04:28 56 L 98 06/10/25 04:26 52 L 104/55 L 06/10/25 04:23 55 L 98 06/10/25 04:18 55 L 97 06/10/25 04:13 57 L 97 06/10/25 04:11 55 L 106/59 L 06/10/25 04:08 54 L 97 06/10/25 04:03 58 L 96 06/10/25 03:58 55 L 97 06/10/25 03:56 55 L 107/58 L 06/10/25 03:53 56 L 97 06/10/25 03:48 55 L 97 06/10/25 03:43 54 L 98 06/10/25 03:41 58 L 103/58 L 06/10/25 03:38 64 99 06/10/25 03:33 56 L 98 06/10/25 03:28 58 L 98 06/10/25 03:25 61 123/58 L 06/10/25 03:23 59 L 97 06/10/25 03:18 56 L 97 06/10/25 03:13 57 L 97 06/10/25 03:10 58 L 110/58 L 06/10/25 03:08 54 L 97 Coding Level of Care Code None Diagnoses Encounter for induction of labor Z34.90
[2025-06-10] MEDS: ACETAMINOPHEN 500 MG TAB PO SCH (15:17)
[2025-06-10] MEDS: LACTATED RINGER'S 1,000 ML IV SCH (15:20)
[2025-06-10] MEDS ORDERED: ONDANSETRON INJ 2 MG/ML 2 ML VIAL ONE (15:45)
[2025-06-10] MEDS ORDERED: DEXAMETHASONE SOD INJ 4 MG/ML VIAL ONE (15:45)
[2025-06-10] MEDS ORDERED: PHENYLEPHRINE HCL 25 MG/250 ML NSS IV ONE (15:45)
[2025-06-10] MEDS ORDERED: MoRPHine SULFATE PF 1 MG/ML 10 ML AMP/VIAL ONE (15:46)
[2025-06-10] MEDS: AZITHROMYCIN 500 MG/255 ML BAG IV SCH (15:49)
[2025-06-10] MEDS ORDERED: LIDOCAINE 2%/EPINEPHRINE 1:200,000 20 ML PF ONE (15:50)
[2025-06-10] MEDS: CITRIC ACID/SODIUM CITRATE 15 ML UDC PO SCH (15:55)
[2025-06-10] MEDS ORDERED: LACTATED RINGER'S 1,000 ML IV SCH (16:15)
[2025-06-10] MEDS ORDERED: NALBUPHINE HCL INJ 10 MG/ML AMP IV PRN (16:27)
[2025-06-10] MEDS ORDERED: MoRPHine SULFATE PF 1 MG/ML 10 ML AMP/VIAL EPI ONE (16:27)
[2025-06-10] MEDS ORDERED: NALOXONE HCL 0.4 MG/1 ML VIAL/CARP IV PRN (16:27)
[2025-06-10] MEDS ORDERED: NALOXONE HCL 1 MG in SODIUM CHLORIDE 0.9% 1,000 ML IV PRN (16:27)
[2025-06-10] MEDS ORDERED: HYDROmorphone INJ 0.5 MG/0.5 ML SYR IV PRN (16:27)
[2025-06-10] MEDS ORDERED: LACTATED RINGER'S 500 ML IV PRN (16:27)
[2025-06-10] MEDS ORDERED: diphenhydrAMINE 50 MG/ML VIAL IV PRN (16:27)
[2025-06-10] MEDS ORDERED: OXYTOCIN 10 UNITS/ML VIAL ONE (16:29)
[2025-06-10] MEDS ORDERED: DC INTRASPINAL MORPHINE SCH (16:30)
[2025-06-10] MEDS ORDERED: NO NARCOTICS OR SEDATIVES SCH (16:30)
[2025-06-10] MEDS ORDERED: SODIUM CHLORIDE 0.9% 1,000 ML IV SCH (16:30)
[2025-06-10 16:48] LABS: Base Excess Cord Venous Blood -5.9 mEq/L (-7.7-1.9); Cord Venous Blood PO2 21 mmHg (14.1-43.3); O2 Saturation Cord Venous Bld < 60.0 % (<68)
--- NOTE | 2025-06-10 17:11 | Anesthesia Procedure Note ---
Date of Service June 10, 2025 Anesthesia Post Epidural Note Vital Signs Vital Signs: Temp Pulse Resp BP Pulse Ox 37.5 C 77 18 129/61 98 06/10/25 15:00 06/10/25 17:09 06/10/25 15:56 06/10/25 17:00 06/10/25 17:09 Notes Mental Status: alert / awake / arousable and participated in evaluation Patient Amnestic to Procedure: No Nausea / Vomiting: adequately controlled Pain: adequately controlled Airway Patency, RR, SpO2: stable & adequate BP & HR: stable & adequate Hydration State: stable & adequate Neuraxial Anesthesia: was administered and sensory block is resolving Anesthetic Complications: no major complications apparent and Pt Satisfied with anesthetic care Epidural: Removed without complications and With tip intact
--- NOTE | 2025-06-10 17:11 | Anesthesiology Progress Note ---
Date of Service June 10, 2025 Anesthesia Post Procedure Vital Signs Vital Signs: Temp Pulse Resp BP Pulse Ox 06/10/25 17:09 77 98 06/10/25 17:04 82 98 06/10/25 17:00 97 H 129/61 06/10/25 15:56 18 06/10/25 15:56 18 06/10/25 15:55 77 127/62 06/10/25 15:54 78 99 06/10/25 15:49 72 100 06/10/25 15:44 73 99 06/10/25 15:40 76 134/68 06/10/25 15:39 69 99 06/10/25 15:38 76 93 06/10/25 15:34 67 99 06/10/25 15:30 18 06/10/25 15:30 18 06/10/25 15:29 63 100 06/10/25 15:26 76 127/69 06/10/25 15:24 80 99 06/10/25 15:23 80 92 06/10/25 15:19 86 97 06/10/25 15:14 84 100 06/10/25 15:11 90 147/70 H 93 06/10/25 15:09 80 99 06/10/25 15:04 76 99 06/10/25 15:00 16 06/10/25 15:00 37.5 C 16 06/10/25 14:59 83 98 06/10/25 14:55 65 120/65 06/10/25 14:54 69 99 06/10/25 14:49 65 100 06/10/25 14:44 79 100 06/10/25 14:40 69 130/73 06/10/25 14:39 82 97 06/10/25 14:34 77 99 06/10/25 14:30 18 06/10/25 14:30 18 06/10/25 14:29 70 99 06/10/25 14:26 61 117/58 L 06/10/25 14:24 71 97 06/10/25 14:19 68 100 06/10/25 14:14 67 100 06/10/25 14:12 67 121/62 06/10/25 14:09 75 100 06/10/25 14:04 63 100 06/10/25 14:00 18 06/10/25 14:00 18 06/10/25 13:59 58 L 100 06/10/25 13:55 61 121/54 L 06/10/25 13:54 80 100 06/10/25 13:49 71 99 06/10/25 13:44 67 99 06/10/25 13:40 66 118/68 06/10/25 13:39 62 99 06/10/25 13:34 74 99 06/10/25 13:30 18 06/10/25 13:30 18 06/10/25 13:29 72 99 06/10/25 13:25 75 113/62 06/10/25 13:24 72 99 06/10/25 13:19 74 99 06/10/25 13:14 73 100 06/10/25 13:10 67 113/66 06/10/25 13:09 65 99 06/10/25 13:04 86 99 06/10/25 13:03 79 93 06/10/25 13:00 18 06/10/25 13:00 37.4 C 18 06/10/25 12:59 75 99 06/10/25 12:55 73 114/67 06/10/25 12:54 64 99 06/10/25 12:49 83 97 06/10/25 12:44 65 99 06/10/25 12:42 64 115/56 L 06/10/25 12:39 88 97 06/10/25 12:34 73 100 06/10/25 12:30 18 06/10/25 12:30 18 06/10/25 12:29 68 100 06/10/25 12:26 67 118/65 06/10/25 12:24 75 100 06/10/25 12:19 78 100 06/10/25 12:14 68 99 06/10/25 12:11 75 134/63 06/10/25 12:09 74 99 06/10/25 12:04 67 98 06/10/25 11:59 74 100 06/10/25 11:55 76 117/64 06/10/25 11:54 69 99 06/10/25 11:49 70 99 06/10/25 11:46 93 H 91 06/10/25 11:44 66 100 06/10/25 11:42 57 L 123/70 06/10/25 11:39 69 100 06/10/25 11:34 57 L 99 06/10/25 11:30 18 06/10/25 11:30 18 06/10/25 11:29 66 99 06/10/25 11:25 58 L 116/57 L 06/10/25 11:24 55 L 99 06/10/25 11:19 54 L 99 06/10/25 11:14 61 98 06/10/25 11:10 63 114/61 06/10/25 11:09 62 100 06/10/25 11:04 60 99 06/10/25 11:00 37.0 C 91 H 18 131/61 06/10/25 10:59 72 98 06/10/25 10:53 95 H 98 06/10/25 10:48 87 99 06/10/25 10:45 96 H 93 06/10/25 10:43 62 97 06/10/25 10:40 58 L 129/73 06/10/25 10:38 57 L 98 06/10/25 10:33 53 L 98 06/10/25 10:30 16 06/10/25 10:30 16 06/10/25 10:28 53 L 99 06/10/25 10:25 54 L 123/70 06/10/25 10:23 54 L 98 06/10/25 10:18 53 L 99 06/10/25 10:13 56 L 99 06/10/25 10:10 59 L 121/66 06/10/25 10:08 58 L 99 06/10/25 10:03 54 L 99 06/10/25 09:58 52 L 99 06/10/25 09:56 51 L 123/64 06/10/25 09:53 58 L 100 06/10/25 09:48 58 L 99 06/10/25 09:44 57 L 120/68 06/10/25 09:43 62 100 06/10/25 09:38 74 92 06/10/25 09:33 65 99 06/10/25 09:30 18 06/10/25 09:30 18 06/10/25 09:28 66 98 06/10/25 09:26 74 123/58 L 06/10/25 09:23 88 99 06/10/25 09:18 88 97 06/10/25 09:13 62 98 06/10/25 09:08 91 H 99 06/10/25 09:07 90 86 L 06/10/25 09:03 61 98 06/10/25 09:00 16 06/10/25 09:00 37.5 C 16 06/10/25 08:58 62 98 06/10/25 08:56 56 L 107/56 L 06/10/25 08:53 61 98 06/10/25 08:48 59 L 99 06/10/25 08:43 65 99 06/10/25 08:42 60 107/57 L 06/10/25 08:38 66 99 06/10/25 08:33 67 99 06/10/25 08:30 18 06/10/25 08:30 18 06/10/25 08:28 99 06/10/25 08:28 74 06/10/25 08:28 97 H 89 L 06/10/25 08:27 75 107/56 L 06/10/25 08:26 55 L 104/52 L 06/10/25 08:23 59 L 98 06/10/25 08:18 63 98 06/10/25 08:13 58 L 99 06/10/25 08:11 61 104/58 L 06/10/25 08:08 76 99 06/10/25 08:03 85 100 06/10/25 07:58 86 99 06/10/25 07:55 71 110/69 06/10/25 07:53 74 98 06/10/25 07:48 80 98 06/10/25 07:43 69 98 06/10/25 07:42 77 93 06/10/25 07:41 62 112/57 L 06/10/25 07:38 61 99 06/10/25 07:33 84 98 06/10/25 07:30 18 06/10/25 07:30 18 06/10/25 07:28 62 99 06/10/25 07:25 63 116/70 06/10/25 07:23 62 98 06/10/25 07:18 62 100 06/10/25 07:13 57 L 99 06/10/25 07:11 56 L 129/73 06/10/25 07:08 60 99 06/10/25 07:03 65 98 06/10/25 07:00 18 06/10/25 07:00 37.5 C 18 06/10/25 06:58 64 132/80 97 06/10/25 06:55 52 L 122/73 06/10/25 06:53 54 L 98 06/10/25 06:48 53 L 98 06/10/25 06:43 57 L 99 06/10/25 06:42 54 L 114/69 06/10/25 06:40 55 L 122/72 06/10/25 06:38 56 L 98 06/10/25 06:33 55 L 98 06/10/25 06:28 58 L 99 06/10/25 06:25 56 L 137/71 06/10/25 06:23 57 L 99 06/10/25 06:18 63 98 06/10/25 06:13 62 98 06/10/25 06:11 75 129/85 06/10/25 06:08 61 97 06/10/25 06:03 66 98 06/10/25 05:58 95 06/10/25 05:58 83 06/10/25 05:58 77 94 06/10/25 05:56 67 125/77 06/10/25 05:53 80 95 06/10/25 05:48 54 L 97 06/10/25 05:43 53 L 98 06/10/25 05:42 57 L 105/59 L 06/10/25 05:38 57 L 97 06/10/25 05:33 52 L 98 06/10/25 05:28 55 L 97 06/10/25 05:25 54 L 105/52 L 06/10/25 05:23 63 98 06/10/25 05:18 58 L 98 06/10/25 05:13 88 98 06/10/25 05:11 64 125/74 06/10/25 05:08 69 99 06/10/25 05:05 37.4 C 06/10/25 05:03 57 L 97 06/10/25 04:58 56 L 97 06/10/25 04:55 55 L 109/57 L 06/10/25 04:53 55 L 97 06/10/25 04:48 55 L 97 06/10/25 04:43 59 L 97 06/10/25 04:40 54 L 103/57 L 06/10/25 04:38 55 L 97 06/10/25 04:33 56 L 97 06/10/25 04:28 56 L 98 06/10/25 04:26 52 L 104/55 L 12/05/25 04:23 55 L 98 06/10/25 04:18 55 L 97 06/10/25 04:13 57 L 97 06/10/25 04:11 55 L 106/59 L 06/10/25 04:08 54 L 97 06/10/25 04:03 58 L 96 06/10/25 03:58 55 L 97 06/10/25 03:56 55 L 107/58 L 06/10/25 03:53 56 L 97 06/10/25 03:48 55 L 97 06/10/25 03:43 54 L 98 06/10/25 03:41 58 L 103/58 L 06/10/25 03:38 64 99 06/10/25 03:33 56 L 98 06/10/25 03:28 58 L 98 06/10/25 03:25 61 123/58 L 06/10/25 03:23 59 L 97 06/10/25 03:18 56 L 97 06/10/25 03:13 57 L 97 06/10/25 03:10 58 L 110/58 L 06/10/25 03:08 54 L 97 06/10/25 03:03 59 L 97 06/10/25 03:00 37.3 C 06/10/25 02:58 55 L 97 06/10/25 02:57 52 L 97/54 L 06/10/25 02:53 52 L 97 06/10/25 02:48 53 L 97 06/10/25 02:43 61 97 06/10/25 02:42 53 L 106/57 L 06/10/25 02:38 60 97 06/10/25 02:33 53 L 97 06/10/25 02:28 57 L 97 06/10/25 02:26 57 L 127/61 06/10/25 02:23 55 L 99 06/10/25 02:18 56 L 98 06/10/25 02:13 64 99 06/10/25 02:10 56 L 113/58 L 06/10/25 02:08 55 L 98 06/10/25 02:03 54 L 99 06/10/25 01:58 56 L 99 06/10/25 01:57 56 L 117/57 L 06/10/25 01:53 75 98 06/10/25 01:48 74 98 06/10/25 01:43 67 99 06/10/25 01:41 74 134/85 06/10/25 01:38 93 H 100 06/10/25 01:33 65 100 06/10/25 01:28 53 L 99 06/10/25 01:26 64 126/61 06/10/25 01:23 67 99 06/10/25 01:18 57 L 99 06/10/25 01:13 57 L 98 06/10/25 01:10 60 123/75 06/10/25 01:08 56 L 98 06/10/25 01:03 60 99 06/10/25 01:00 18 06/10/25 01:00 37.2 C 18 06/10/25 00:58 72 100 06/10/25 00:56 55 L 108/66 06/10/25 00:53 54 L 98 06/10/25 00:48 52 L 97 06/10/25 00:43 53 L 98 06/10/25 00:40 52 L 113/64 06/10/25 00:38 51 L 98 06/10/25 00:33 50 L 98 06/10/25 00:28 54 L 98 06/10/25 00:25 53 L 116/64 06/10/25 00:23 51 L 98 06/10/25 00:18 52 L 98 06/10/25 00:13 56 L 97 06/10/25 00:11 55 L 104/58 L 06/10/25 00:08 53 L 98 06/10/25 00:03 54 L 97 06/09/25 23:58 52 L 98 06/09/25 23:56 54 L 112/58 L 06/09/25 23:53 53 L 98 06/09/25 23:48 53 L 98 06/09/25 23:43 55 L 99 06/09/25 23:41 54 L 107/56 L 06/09/25 23:38 56 L 98 06/09/25 23:33 62 98 06/09/25 23:28 52 L 97 06/09/25 23:26 55 L 105/55 L 06/09/25 23:23 50 L 97 06/09/25 23:18 51 L 96 06/09/25 23:13 51 L 97 06/09/25 23:11 50 L 93/55 L 06/09/25 23:08 51 L 97 06/09/25 23:03 52 L 98 06/09/25 22:58 54 L 98 06/09/25 22:56 54 L 100/55 L 06/09/25 22:55 36.9 C 06/09/25 22:53 61 97 06/09/25 22:48 54 L 98 06/09/25 22:43 56 L 98 06/09/25 22:41 59 L 102/55 L 06/09/25 22:38 56 L 98 06/09/25 22:33 61 99 06/09/25 22:28 78 98 06/09/25 22:23 63 99 06/09/25 22:18 95 H 99 06/09/25 22:13 125 H 99 06/09/25 22:11 120 H 157/111 H 91 06/09/25 22:08 58 L 100 06/09/25 22:03 67 100 06/09/25 21:58 51 L 99 06/09/25 21:55 51 L 123/75 06/09/25 21:53 66 99 06/09/25 21:48 68 99 06/09/25 21:43 56 L 99 06/09/25 21:40 57 L 119/77 06/09/25 21:38 56 L 99 06/09/25 21:33 80 97 06/09/25 21:29 66 91 06/09/25 21:28 53 L 99 06/09/25 21:26 57 L 106/67 06/09/25 21:23 59 L 100 06/09/25 21:18 60 100 06/09/25 21:13 67 99 06/09/25 21:12 60 103/64 06/09/25 21:10 60 92 06/09/25 21:08 51 L 99 06/09/25 21:03 61 100 06/09/25 21:00 37.0 C 06/09/25 20:58 52 L 99 06/09/25 20:55 50 L 104/55 L 06/09/25 20:53 48 L 98 06/09/25 20:48 52 L 99 06/09/25 20:43 49 L 99 06/09/25 20:41 51 L 102/56 L 06/09/25 20:38 54 L 99 06/09/25 20:33 52 L 99 06/09/25 20:28 53 L 99 06/09/25 20:27 51 L 100/52 L 06/09/25 20:23 57 L 100 06/09/25 20:18 60 99 06/09/25 20:13 65 99 06/09/25 20:09 86 90 06/09/25 20:08 90 98 06/09/25 20:03 99 06/09/25 20:03 92 H 06/09/25 20:03 62 111/68 06/09/25 19:58 66 99 06/09/25 19:56 92 H 115/72 06/09/25 19:54 64 121/61 06/09/25 19:53 65 99 06/09/25 19:50 64 124/74 06/09/25 19:48 65 100 06/09/25 19:46 70 137/77 06/09/25 19:43 67 99 06/09/25 19:38 83 95 06/09/25 19:33 53 L 99 06/09/25 19:28 52 L 99 06/09/25 19:23 52 L 100 06/09/25 19:11 37.1 C 59 L 18 125/74 06/09/25 19:00 20 06/09/25 19:00 20 06/09/25 18:30 18 06/09/25 18:30 18 06/09/25 18:16 60 140/85 06/09/25 18:15 20 06/09/25 18:15 37.0 C 20 06/09/25 18:00 20 06/09/25 18:00 20 06/09/25 17:30 20 06/09/25 17:30 20 06/09/25 17:23 64 145/76 H Transfer of Care Handoff Completed per policy Notes Mental Status: alert / awake / arousable and participated in evaluation Patient Amnestic to Procedure: No Nausea / Vomiting: adequately controlled Pain: adequately controlled Airway Patency, RR, SpO2: stable & adequate BP & HR: stable & adequate Hydration State: stable & adequate Neuraxial Anesthesia: was administered and sensory block is resolving Anesthetic Complications: no major complications apparent and Pt Satisfied with anesthetic care
--- NOTE | 2025-06-10 17:27 | Operative Report ---
Post Operative Report Pre & Post Diagnosis Operation Date: 06/10/25 15:20 Pre-Op Diagnosis: Intrauterine , section for arrest of dilation Post-Op Diagnosis: same I identified the patient and participated in the time-out.: Yes Procedure Operation Date: 06/10/25 15:20 Actual Procedures p Primary Low Transverse Section in LD(Bilateral) - Parisa Arredondo MD Surgeon Parisa Arredondo MD Integration Developer [facility] Center[facility] Warehouse Architect Quantitative Blood Loss (QBL) 486 Findings Consistent with Post-Op Diagnosis Normal uterus, fallopian tubes and ovaries. Viable female , cephalic, me conium fluid, APGARS 8/9. Fluids per anesthesia Specimens placenta, cord blood/gases Drains danielson, clear urine Anesthesia Type Labor Epidural Complications none Disposition Accompanied Patient To Recovery: Yes Disposition: L&D Indications Patient is a 30 yo who was admitted for induction of labor. Underwent induction process and made it to 6cm dilated. She remained 6cm dilated after >6 hours with meconium fluid despite adequate contraction pattern. Primary section was recommended for arrest of dilation. Patient was agreeable to proceeding and consented prior to going to the OR. Description of Procedure Description of Procedure The patient was taken to the operating room and identified. After adequate anesthesia was obtained, she was placed in the supine position with a leftward tilt on the operating table and prepped and draped in the usual sterile fashion. A danielson catheter had already been placed. The knife was used to create a Pfannenstiel skin incision that was carried down to the underlying layer of fascia using bovie cautery. The fascia was nicked in the midline and this opening was extended laterally using Alas scissors. Lyla clamps were placed on the superior and inferior aspect of the fascial incision tenting it upward and the underlying rectus muscles were dissected off the overlying fascia both sharply and bluntly using Alas scissors. The rectus muscles were bluntly in the midline. The peritoneal cavity was bluntly entered into. This opening was stretched. An Thierno retractor was placed. The vesicouterine peritoneum was elevated and opened up into and the bladder flap was created digitally. The knife was used to create a hysterotomy and this opening was stretched. The operators hand was placed through the hysterotomy. The fetus was delivered in the usual fashion atraumatically. The cord was clamped and cut and the 's mouth and nares were bulb suctioned. The was handed off to the awaiting pediatricians. Cord blood and cord gases were obtained. The uterus was exteriorized and cleared of all clots and debris. Dilute IV Pitocin was begun. The hysterotomy was closed in a running interlocking fashion using 0 monocryl. The hysterotomy was noted to be hemostatic and a second imbricating layer was added. The uterus was returned to the abdomen. The gutters were cleared of all clots and debris. The hysterotomy was reinspected and noted to be hemostatic. The fascia was then closed in running fashion using 0 Vicryl. The subcutaneous fat was copiously irrigated and reapproximated using plain gut. The skin was closed in a subcuticular fashion using 4-0 monocryl. At this point the procedure was terminated. The patient was transferred to the recovery room in stable condition. All sponge, lap and needle counts are correct x2. I attest to the content of the Intraoperative Record and any orders documented therein. Any exceptions are noted below. OB Procedure Charges 82610 SENIOR RADIATION THERAPIST Miscellaneous Codes Indication for Procedure Indication for procedure: Arrest of dilation
[2025-06-10] MEDS ORDERED: CALCIUM CARBONATE 500 MG CHEWABLE TAB PO PRN (18:10)
[2025-06-10] MEDS ORDERED: MAGNESIUM HYDROXIDE SUSP 30 ML UDC PO PRN (18:10)
[2025-06-10] MEDS ORDERED: DIPHTHER/TETAN/PERTUS Vaccine (Tdap, Adol/Adult) 0.5mL IM ONE (18:10)
[2025-06-10] MEDS ORDERED: HYDROCORTISONE ACETATE 25 MG SUPP PR PRN (18:10)
[2025-06-10] MEDS ORDERED: SENNA 8.6 MG TAB PO PRN (18:10)
[2025-06-10] MEDS ORDERED: BENZOCAINE 20% SPRY 85 APPLN/85 GM CAN EXT PRN (18:10)
[2025-06-10] MEDS: KETOROLAC 30 MG/ML VIAL IV SCH (19:04)
[2025-06-10] MEDS: CITRIC ACID/SODIUM CITRATE 15 ML UDC ONE (19:05)
[2025-06-10] MEDS: OXYTOCIN 20 UNITS/LR 1,002 ML IV SCH (19:08)
[2025-06-10] MEDS: DOCUSATE SODIUM 100 MG CAP PO SCH (22:22)
[2025-06-10] MEDS: ONDANSETRON INJ 2 MG/ML 2 ML VIAL IV PRN (22:44)
[2025-06-10] MEDS: SIMETHICONE 80 MG CHEW PO SCH (23:48)
[2025-06-10] MEDS: ACETAMINOPHEN 325 MG TAB PO SCH (23:49)
[2025-06-11] MEDS: LACTATED RINGER'S 1,000 ML IV SCH (02:01)
--- NOTE | 2025-06-11 06:25 | Obstetrical Progress Note ---
Date of Service June 11, 2025 Assessment & Plan (1) examination following delivery: Plan 30 y/o pod #1 s/p delivery. complicated by arrest of dilation Vital signs stable Continue post- care Encourage ambulation and Pain controlled with ibuprofen Hgb stable Consider possible home discharge tomorrow, follow-up with Dr. Arredondo in 6 weeks Admission and Anticipated Discharge Date Admission Date: June 09, 2025 Supervising Physician Co-Signing Physician Notes Resident Physician Supervision Note: I interviewed and examined the patient. Discussed with Dr. Parr and agree with findings and plan as documented in the note. Any exceptions or clarifications are listed here: POD#1 from [facility] for arrest of dilation. Doing well this morning, pain controlled. Has not voided yet. Thinks she passed small amount of gas. Had nausea/vomiting after surgery, feeling improved today. Incision bandage clean/dry, uterus firm. Continue routine postop care, await spontaneous void. AM labs pending. Documented By: Parisa Arredondo MD Subjective 30 yo pod #1 s/p delivery. complicated by arrest of dilation. some nausea/vomiting overnight, did have episode of bilious vomiting this morning. Has been able to tolerate saltine crackers and some water w/o issue. Has not been OOB since about 3am, but had no issues with ambulation at that time. has not voided since danielson was dc - endorses some cramping, otherwise no abdominal pain, flank pain, or suprapubic pain. Voiding: has not voided since danielson dc Passing Gas:: has been bloated/belching but no flatus ; denies abdominal pain. Diet Tolerance:: some N/V as above ; tolerate bland snacks Lochia:: Small Feeding Type:: breast Current Pain Level: minimal Resting comfortably this AM in NAD. Denies [place], CP, SOB, LE pain/swelling. Physical Exam Physical Exam: General: patient resting comfortably, NAD, non-toxic in appearance, A&Ox4, answers questions appropriately. Skin: warm, dry, intact HEENT: NC/AT, anicteric sclera, conjunctiva without injection, moist mucus membranes. Heart: +S1/S2, regular, no m/r/g Lungs: equal air entry bilaterally, no rales/rhonchi/wheezes Abd: +BS, soft, NT/ND, uterine fundus firm at umbilicus, surgical dressing C/D Ext: warm, no clubbing/cyanosis or edema, Bhavesh's neg. SCDs on and running Neuro: no focal neurologic deficits, moving all extremities. Results & Data Vital Signs (Past 12 Hours) Vital Signs Temp Pulse Pulse Pulse Resp BP BP 06/11/25 06:11 18 06/11/25 05:20 18 06/11/25 04:21 18 06/11/25 03:30 36.8 C 69 18 124/78 06/11/25 03:23 18 06/11/25 02:25 16 06/11/25 01:15 16 06/11/25 00:10 16 06/11/25 00:10 36.9 C 64 16 131/79 06/10/25 23:09 16 06/10/25 22:13 18 06/10/25 21:30 18 06/10/25 21:30 06/10/25 21:30 36.5 C 62 18 151/81 H 06/10/25 20:24 71 06/10/25 20:19 76 06/10/25 20:14 64 06/10/25 20:09 70 06/10/25 20:08 66 133/71 06/10/25 20:04 73 06/10/25 19:59 70 06/10/25 19:54 67 06/10/25 19:49 68 06/10/25 19:44 71 06/10/25 19:39 70 06/10/25 19:34 71 06/10/25 19:29 69 06/10/25 19:24 72 06/10/25 19:19 74 06/10/25 19:14 72 06/10/25 19:09 67 06/10/25 19:04 77 06/10/25 19:02 76 158/80 H 06/10/25 18:59 74 06/10/25 18:58 75 140/69 06/10/25 18:54 77 06/10/25 18:51 73 131/66 06/10/25 18:49 74 06/10/25 18:44 87 06/10/25 18:42 72 123/59 L 06/10/25 18:39 76 06/10/25 18:34 77 06/10/25 18:32 75 133/65 06/10/25 18:29 73 Pulse Ox O2 Del Method 06/11/25 06:11 98 06/11/25 05:20 100 06/11/25 04:21 96 06/11/25 03:30 99 Room Air 06/11/25 03:23 97 06/11/25 02:25 98 06/11/25 01:15 97 06/11/25 00:10 97 06/11/25 00:10 97 Room Air 06/10/25 23:09 98 06/10/25 22:13 98 06/10/25 21:30 97 06/10/25 21:30 Room Air 06/10/25 21:30 97 Room Air 06/10/25 20:24 99 06/10/25 20:19 98 06/10/25 20:14 97 06/10/25 20:09 98 06/10/25 20:08 06/10/25 20:04 98 06/10/25 19:59 98 06/10/25 19:54 97 06/10/25 19:49 98 06/10/25 19:44 97 06/10/25 19:39 97 06/10/25 19:34 98 06/10/25 19:29 98 06/10/25 19:24 98 06/10/25 19:19 98 06/10/25 19:14 97 06/10/25 19:09 98 06/10/25 19:04 97 06/10/25 19:02 06/10/25 18:59 97 06/10/25 18:58 06/10/25 18:54 96 06/10/25 18:51 06/10/25 18:49 97 06/10/25 18:44 97 06/10/25 18:42 06/10/25 18:39 96 06/10/25 18:34 97 06/10/25 18:32 06/10/25 18:29 98
[2025-06-11 08:07] LABS: Hematocrit (blood only) 28.4 % (37.0-47.0); Hemoglobin 9.4 g/dL (12.0-16.0); Immature Granulocytes # (auto) 0.15 K/uL (0.01-0.20); Immature Granulocytes % (auto) 0.7 %; Mean Corpuscular Hemoglobin 27.9 pg (25.0-34.0); Mean Corpuscular Volume 84.3 fL (80.0-100.0); Platelet Count 154 K/uL (130-400); RDW Standard Deviation 43.1 fL (36.4-46.3); Red Blood Count 3.37 M/uL (4.20-5.40); White Blood Count 20.96 K/ul (4.8-10.8)
[2025-06-11] MEDS: FERROUS SULFATE 325 MG TAB PO SCH (08:23)
[2025-06-11] MEDS: PRENATAL VITAMIN 1 TAB PO SCH (08:23)
[2025-06-11] MEDS: NALOXONE HCL 0.08 MG in SYRINGE 1.8 ML IV PRN (09:59)
[2025-06-11] MEDS ORDERED: ONDANSETRON INJ 2 MG/ML 2 ML VIAL IV PRN (10:27)
[2025-06-11] MEDS ORDERED: diphenhydrAMINE 50 MG/ML VIAL IV PRN (10:27)
[2025-06-11] MEDS ORDERED: PROMETHAZINE 12.5 MG/50.5 ML BAG IV PRN (10:27)
[2025-06-11] MEDS ORDERED: HYDROmorphone INJ 0.5 MG/0.5 ML SYR IV PRN (10:27)
[2025-06-11] MEDS ORDERED: diphenhydrAMINE Capsule 25 MG CAP PO PRN (10:27)
[2025-06-11] MEDS: IBUPROFEN 600 MG TAB PO SCH (17:21)
[2025-06-11] MEDS ORDERED: KETOROLAC 30 MG/ML VIAL IV PRN (17:23)
[2025-06-11 22:41] VITALS: RESP 18
[2025-06-12 06:59] LABS: Hematocrit (blood only) 28.6 % (37.0-47.0); Hemoglobin 9.5 g/dL (12.0-16.0)
--- NOTE | 2025-06-12 08:15 | Obstetrical Progress Note ---
Date of Service June 12, 2025 Assessment & Plan (1) examination following delivery: Day 2 status post primary . Patient doing well and stable for discharge if preferred Subjective Ambulation: ambulating normally Voiding: no voiding problems Passing Gas:: Yes Diet Tolerance:: regular diet Lochia:: Moderate Reporting tenderness around incision. Physical Exam Constitutional WD/WN, vitals as above Respiratory normal respiratory effort; no respiratory distress and no labored breathing Cardiovascular Extremities: no calf tenderness Gastrointestinal (Abdomen) Inspection/Auscultation: abdomen normal to inspection; abdomen not distended Percussion/Palpation: abdomen soft; abdomen nontender, no guarding and abdomen not rigid Incision clean, dry and intact. No concerns for infection and no drainage/strikethrough on bandage Genitourinary OB Exam Abdomen: + fundal height Fundus: + firm and + relation to umbilicus (Below); not tender or not boggy Results & Data Vital Signs (Past 12 Hours) Vital Signs Temp Pulse Resp BP Pulse Ox O2 Del Method 06/12/25 03:15 36.7 C 71 18 108/67 99 Room Air 06/11/25 20:30 Room Air 06/11/25 20:30 36.6 C 79 18 121/78 98 Room Air
[2025-06-12 10:05] VITALS: BP 118/80; TEMP 97.7; O2SAT 97
[2025-06-12 13:20] VITALS: PULSE 62
[2025-06-12] MEDS ORDERED: IBUPROFEN 600 MG TAB PO PRN (17:23)
[2025-06-12] MEDS ORDERED: ACETAMINOPHEN 325 MG TAB PO PRN (23:23)
--- NOTE | 2025-06-13 12:26 | Discharge Summary ---
Date of Service June 13, 2025 Admission HPI Per Admitting Provider Sanjuanita Hutchison is a 30 y/o at 40w 1d with PASTORA 06/08/25 as determined by ultrasound who presents this morning for induction of labor. uncomplicated. External FHT and external uterine monitors used; Category I tracing; moeerate FHT variability. Had regular appointments with OB. Initial OB Labs 11/17/24 Blood Type & RH O positive Antibody Screen negative HCT/HGB 36.5/12.9 Platelets 213 Hep C IgG 13yrs+ Old non reactive Pap Test WNL Chlamydia negative Gonorrhea negative Rubella Immune RPR non reactive Urine Culture/Screen 10,000-50,000 mixed gram + lynne HBsAg non reactive HIV non reactive MCV 87.1 Ultrasound ROS: Denies fever, chills, sweats Denies SOB, dysnpea, chest pain, palpitation, chest pressure Denies breast pain Denies dysuria Denies headache or changes in vision. Discharge Data Procedures Performed Operation Date: 06/10/25 15:20 Actual Procedures p Section in LD(Bilateral) - Parisa Arredondo MD Hospital Course (1) examination following delivery: Plan Pt underwent induction of labor with arrest of dilation. Proceeded with primary low transverse section without complications. She received routine postop care. Coding Level of Care Code 73873 IN/OBS DISCH 30 MIN/LESS Diagnoses examination following delivery Z39.2
== END 2025-06-12 14:03 | disposition home or self-care (01) | DRG 788 ==
LOC: 4S1 07:37 → 4E2 06-10 20:47